=== PATIENT | female | born 1950 | race Caucasian/White ===

== ENCOUNTER → 2017-03-05 | Outpatient (CLI) | payer OTHER, MEDICAID ==
[~2017-03-05] MED LIST: ACLI400A2 INH; ALBU0.63 NEB; ALBU18HF INH; AMLO10TA2 PO; AZIT250T89 PO; BUDE10.2 INH; BUDE10.22 INH; CEFD300C37 PO; CITA10SO PO; CITA40TA12 PO; ENAL1TAB4 PO; GABA300C10 PO; HYDR-3138 PO; IPRA4AER INH; LORA10TA62 PO; METH500T7 PO; NAPR500T PO; NAPR500T3 PO; OLME40TA PO; OLME5TAB4 PO; OMEP-110 PO; PRAM0.12 PO; PRAM3TAB PO; PRED20TA PO; RISE5TAB PO; SIME80TA16 PO; TIZA4TAB PO; TRAZ100T15 PO; TRAZ150T68 PO; TRIA1CAP3 PO
== END | disposition home or self-care (01) ==
LOC: CFH 10:52
PROVIDERS: ATTEND Internal Medicine
DX: R05 Cough (principal)
CPT/HCPCS: 71020

== ENCOUNTER 2017-05-09 08:20 | Emergency (ER) | payer OTHER, MEDICAID ==
[~2017-05-09] VITALS: Ht 165.1 cm; Wt 81.1 kg
[2017-05-09 09:17] LABS: HEMOGLOBIN 14.3 g/dL (11.7-16.4); WHITE BLOOD COUNT 5.3 x10^3/uL (3.4-10)
[2017-05-09 09:26] LABS: ASPARTATE AMINO TRANSFERASE 13 U/L (15-37); BLOOD UREA NITROGEN 22 mg/dL (7-18)
[2017-05-09 09:31] LABS: IS PT STATUS REG ER OR PRE ER? YES
[2017-05-09 09:55] VITALS: BP 178/64
== END 2017-05-09 09:58 | disposition home or self-care (01) ==
LOC: ED 09:04
DX: J44.1 Chronic obstructive pulmonary disease with (acute) exacerbation (principal); K21.9 Gastro-esophageal reflux disease without esophagitis; M81.0 Age-related osteoporosis without current pathological fracture; I10 Essential (primary) hypertension; F41.9 Anxiety disorder, unspecified; Z59.0 Homelessness; Z87.891 Personal history of nicotine dependence; Z99.81 Dependence on supplemental oxygen
CPT/HCPCS: 36415; 71010; 80053; 83880; 84484; 85025; 93005; 99285; J7512

== ENCOUNTER 2017-06-30 14:24 | Emergency (ER) | payer OTHER, MEDICAID ==
[~2017-06-30] VITALS: Ht 170.2 cm; Wt 73.0 kg
[~2017-06-30 14:24] MED LIST changes: -HYDR-3138 PO; +HYDR-3237 PO; -OLME40TA PO; +OLME40TA12 PO; +TRAZ150T62 PO; -TRAZ150T68 PO
[2017-06-30 14:27] VITALS: BP 158/82
[2017-06-30 14:55] LABS: WHITE BLOOD COUNT 10.5 x10^3/uL (3.4-10)
[2017-06-30 14:56] LABS: HEMATOCRIT 42.4 % (34.6-47.8); HEMOGLOBIN 14.3 g/dL (11.7-16.4)
[2017-06-30 15:09] LABS: BLOOD UREA NITROGEN 20 mg/dL (7-18)
[2017-06-30 15:13] LABS: IS PT STATUS REG ER OR PRE ER? YES
[2017-06-30] MEDS ORDERED: ACETAMINOPHEN 325 MG TABLET ONE (16:19)
[2017-06-30] MEDS ORDERED: ACETAMINOPHEN 325 MG TABLET PO ONE (16:30)
== END 2017-06-30 16:25 | disposition home or self-care (01) ==
LOC: ED 15:03
DX: J20.9 Acute bronchitis, unspecified (principal); B96.89 Other specified bacterial agents as the cause of diseases classified elsewhere; J44.9 Chronic obstructive pulmonary disease, unspecified
CPT/HCPCS: 36415; 71010; 80048; 82040; 84484; 85025; 93005; 99285

== ENCOUNTER 2018-06-02 06:33 | Day surgery (SDC) | payer OTHER, MEDICAID ==
[~2018-06-02] VITALS: Ht 165.1 cm; Wt 78.5 kg
[~2018-06-02 06:33] MED LIST changes: -AMLO10TA2 PO; +AMLO10TA6 PO; +NAPR-685 PO; +NAPR-856 PO; -NAPR500T PO; -NAPR500T3 PO; +TRAZ-137 PO; -TRAZ100T15 PO
[2018-06-02] MEDS ORDERED: LACTATED RINGERS 1,000 ML IV SCH (07:32)
[2018-06-02] MEDS ORDERED: FLUT1BLS3 INH (07:37)
[2018-06-02 07:46] VITALS: BP 148/76
[2018-06-02] MEDS ORDERED: ALBUTEROL SULFATE 2.5 MG/3 ML ONE (07:55)
[2018-06-02] MEDS ORDERED: ALBUTEROL/IPRATROPIUM 2.5MG/0.5MG, 3 ML NEB ONE (08:00)
[2018-06-02] MEDS ORDERED: LIDOCAINE-MPF 1%, 2ML INFIL ONE (08:00)
[2018-06-02 08:13] LABS: ALANINE AMINOTRANSFERASE 32 U/L (12-78); ALBUMIN 4.1 g/dL (3.4-5.0); ANION GAP 8 mmol/L (5-15); CALCIUM 8.9 mg/dL (8.5-10.1); CHLORIDE 105 mmol/L (98-107); CREATININE 0.95 mg/dL (0.55-1.02)
[2018-06-02 08:15] LABS: ALKALINE PHOSPHATASE 71 U/L (45-117); BILIRUBIN,TOTAL 1.4 mg/dL (0.2-1.0); TOTAL PROTEIN 7.5 g/dL (6.4-8.2)
[2018-06-02] MEDS ORDERED: PROPOFOL 10 MG/ML, 20ML ONE (08:15)
[2018-06-02] MEDS ORDERED: DEXTROSE 50%, 50ML SYRINGE ONE (08:20)
[2018-06-02] MEDS ORDERED: ALBUTEROL SULFATE 2.5 MG/3 ML NPPB ONE (08:30)
[2018-06-02] MEDS ORDERED: ALBUTEROL/IPRATROPIUM 2.5MG/0.5MG, 3 ML NPPB PRN (09:00)
[2018-06-02] MEDS ORDERED: MIDAZOLAM 1 MG/ML, 2ML IV PRN (09:00)
[2018-06-02] MEDS ORDERED: PROMETHAZINE 12.5 MG SUPP PR PRN (09:00)
[2018-06-02] MEDS ORDERED: FENTANYL PF 100 MCG/2ML IV PRN (09:00)
[2018-06-02] MEDS ORDERED: EPHEDRINE 50 MG/ML, 1ML IVPush PRN (09:00)
[2018-06-02] MEDS ORDERED: ONDANSETRON ODT 8 MG PO PRN (09:00)
[2018-06-02] MEDS ORDERED: EPHEDRINE 50 MG/ML, 1ML IM PRN (09:00)
[2018-06-02] MEDS ORDERED: PROMETHAZINE 25 MG/ML, 1ML IV PRN (09:00)
[2018-06-02] MEDS ORDERED: PROMETHAZINE 25 MG SUPP PR PRN (09:00)
[2018-06-02] MEDS ORDERED: METOPROLOL 1 MG/ML, 5ML IV PRN (09:00)
[2018-06-02] MEDS ORDERED: DIPHENHYDRAMINE 50 MG/ML, 1ML IVPush PRN (09:00)
[2018-06-02] MEDS ORDERED: ACETAMINOPHEN 325 MG TABLET PO PRN (09:00)
[2018-06-02] MEDS ORDERED: hydrALAzine 20 MG/ML, 1ML IV PRN (09:00)
== END 2018-06-02 14:15 | disposition home or self-care (01) ==
LOC: OUT 06:33
PROVIDERS: ATTEND Internal Medicine Gastroenterology
DX: K57.30 Diverticulosis of large intestine without perforation or abscess without bleeding (principal); I10 Essential (primary) hypertension; J44.9 Chronic obstructive pulmonary disease, unspecified; Z99.81 Dependence on supplemental oxygen; Z88.8 Allergy status to other drugs, medicaments and biological substances; Z98.890 Other specified postprocedural states
CPT/HCPCS: 36415; 45378; 80053; 82962; 93005; 94640; J2704; J7613

== ENCOUNTER 2018-07-03 21:26 | Emergency (ER) | payer OTHER, MEDICAID ==
[~2018-07-03] VITALS: Ht 165.1 cm; Wt 75.9 kg
[~2018-07-03 21:26] MED LIST changes: +FLUT1BLS3 INH
[2018-07-03 22:13] LABS: BASOPHILS # (AUTO) 0.05 x10^3/uL (0-0.1); BASOPHILS % (AUTO) 1 % (0-1); EOSINOPHILS # (AUTO) 0.19 x10^3/uL (0-0.4); EOSINOPHILS % (AUTO) 3 % (1-7); LYMPHOCYTES # (AUTO) 1.33 x10^3/uL (1-3.4); LYMPHOCYTES % (AUTO) 21 % (22-44); MD NO; MEAN CORPUSCULAR HEMOGLOBIN 30.5 pg (27.0-34.8); MEAN CORPUSCULAR HGB CONC 32.9 g/dL (32.4-35.8); MEAN CORPUSCULAR VOLUME 92.8 fL (80-100); MEAN PLATELET VOLUME 7.2 fL (7.4-10.4); MONOCYTES # (AUTO) 0.47 x10^3/uL (0.2-0.8); MONOCYTES % (AUTO) 7 % (2-9); NEUTROPHILS # (AUTO) 4.29 x10^3/uL (1.8-6.8); NEUTROPHILS % (AUTO) 68 % (42-75); PLATELET COUNT 282 x10^3/uL (130-400); RED CELL DISTRIBUTION WIDTH 13.8 % (9.6-15.2)
[2018-07-03] MEDS ORDERED: OMNIPAQUE 350 MG/ML, 100ML BOTTLE ONE (22:30)
[2018-07-03 22:48] LABS: ALBUMIN 3.4 g/dL (3.4-5.0); ANION GAP 4 mmol/L (5-15); CALCIUM 8.5 mg/dL (8.5-10.1); CHLORIDE 105 mmol/L (98-107); CREATININE 0.93 mg/dL (0.55-1.02)
[2018-07-03 23:06] LABS: ALANINE AMINOTRANSFERASE 21 U/L (12-78); ALKALINE PHOSPHATASE 49 U/L (45-117); BILIRUBIN,TOTAL 0.3 mg/dL (0.2-1.0); TOTAL PROTEIN 6.5 g/dL (6.4-8.2); TROPONIN I < 0.015 ng/mL (0.000-0.045)
[2018-07-03 23:16] VITALS: BP 142/74
[2018-07-03 23:24] LABS: CULTURE INDICATED? YES; MICROSCOPIC INDICATED
== END 2018-07-04 00:24 | disposition home or self-care (01) ==
LOC: ED 23:59
DX: R10.12 Left upper quadrant pain (principal); R10.32 Left lower quadrant pain; E11.9 Type 2 diabetes mellitus without complications; K21.9 Gastro-esophageal reflux disease without esophagitis; M54.9 Dorsalgia, unspecified; G89.29 Other chronic pain; J44.9 Chronic obstructive pulmonary disease, unspecified; I10 Essential (primary) hypertension; F32.9 Major depressive disorder, single episode, unspecified; F41.1 Generalized anxiety disorder; Z86.718 Personal history of other venous thrombosis and embolism; Z87.891 Personal history of nicotine dependence
CPT/HCPCS: 36415; 74022; 74177; 80053; 81001; 84484; 85025; 87086; 93005; 99285; Q9967

== ENCOUNTER 2018-08-16 16:31 | Emergency (ER) | payer OTHER, MEDICAID ==
[2018-08-16 17:11] LABS: BASOPHILS # (AUTO) 0.02 x10^3/uL (0-0.1); BASOPHILS % (AUTO) 0 % (0-1); EOSINOPHILS # (AUTO) 0.26 x10^3/uL (0-0.4); EOSINOPHILS % (AUTO) 4 % (1-7); LYMPHOCYTES # (AUTO) 1.69 x10^3/uL (1-3.4); LYMPHOCYTES % (AUTO) 29 % (22-44); MD NO; MEAN CORPUSCULAR HEMOGLOBIN 31.2 pg (27.0-34.8); MEAN CORPUSCULAR HGB CONC 33.8 g/dL (32.4-35.8); MEAN CORPUSCULAR VOLUME 92.3 fL (80-100); MEAN PLATELET VOLUME 7.3 fL (7.4-10.4); MONOCYTES # (AUTO) 0.57 x10^3/uL (0.2-0.8); MONOCYTES % (AUTO) 10 % (2-9); NEUTROPHILS % (AUTO) 57 % (42-75); PLATELET COUNT 265 x10^3/uL (130-400); RED BLOOD COUNT 4.93 x10^6/uL (3.82-5.3); RED CELL DISTRIBUTION WIDTH 12.9 % (9.6-15.2)
[2018-08-16 17:22] LABS: ALANINE AMINOTRANSFERASE 37 U/L (12-78); ALBUMIN 3.6 g/dL (3.4-5.0); ANION GAP 6 mmol/L (5-15); CALCIUM 8.8 mg/dL (8.5-10.1); CHLORIDE 106 mmol/L (98-107); CREATININE 0.92 mg/dL (0.55-1.02)
[2018-08-16 17:25] LABS: ALKALINE PHOSPHATASE 52 U/L (45-117); BILIRUBIN,TOTAL 0.3 mg/dL (0.2-1.0); TOTAL PROTEIN 6.9 g/dL (6.4-8.2)
[2018-08-16 19:21] VITALS: BP 128/67
== END 2018-08-16 19:35 | disposition home or self-care (01) ==
LOC: ED 19:29
DX: J43.9 Emphysema, unspecified (principal); K42.9 Umbilical hernia without obstruction or gangrene; E11.9 Type 2 diabetes mellitus without complications; K21.9 Gastro-esophageal reflux disease without esophagitis; F32.9 Major depressive disorder, single episode, unspecified; I10 Essential (primary) hypertension; Z86.718 Personal history of other venous thrombosis and embolism
CPT/HCPCS: 36415; 74022; 76705; 80053; 83880; 85025; 93005; 99284

== ENCOUNTER → 2018-10-20 | Outpatient (CLI) | payer OTHER, MEDICAID ==
[~2018-10-20] MED LIST changes: +ALBU1.25 NEB; -AMLO10TA6 PO; +AMLO10TA8 PO; +METH750T2 PO; +OLME20TA17 PO; +OXYB5TAB7 PO; +PRAM0.125 PO; +TRAZ50TA66 PO; +[UNRECOGNIZED DRUG - CODE] PO; +biotin PO
== END | disposition home or self-care (01) ==
LOC: STAR 14:30
PROVIDERS: ATTEND Surgery
DX: Z01.818 Encounter for other preprocedural examination (principal); K42.9 Umbilical hernia without obstruction or gangrene
CPT/HCPCS: 93005

== ENCOUNTER 2018-12-15 16:43 | Emergency (ER) | payer OTHER, MEDICAID ==
[~2018-12-15] VITALS: Ht 165.1 cm; Wt 76.2 kg
[2018-12-15 17:34] LABS: BASOPHILS # (AUTO) 0.02 x10^3/uL (0-0.1); BASOPHILS % (AUTO) 0 % (0-1); EOSINOPHILS # (AUTO) 0.07 x10^3/uL (0-0.4); EOSINOPHILS % (AUTO) 1 % (1-7); LYMPHOCYTES # (AUTO) 1.54 x10^3/uL (1-3.4); LYMPHOCYTES % (AUTO) 16 % (22-44); MD NO; MEAN CORPUSCULAR HEMOGLOBIN 31.7 pg (27.0-34.8); MEAN CORPUSCULAR HGB CONC 34.2 g/dL (32.4-35.8); MEAN CORPUSCULAR VOLUME 92.9 fL (80-100); MEAN PLATELET VOLUME 6.9 fL (7.4-10.4); MONOCYTES # (AUTO) 0.88 x10^3/uL (0.2-0.8); MONOCYTES % (AUTO) 9 % (2-9); NEUTROPHILS # (AUTO) 7.01 x10^3/uL (1.8-6.8); NEUTROPHILS % (AUTO) 74 % (42-75); PLATELET COUNT 288 x10^3/uL (130-400); RED CELL DISTRIBUTION WIDTH 12.6 % (9.6-15.2)
[2018-12-15 17:45] LABS: ALANINE AMINOTRANSFERASE 22 U/L (12-78); ALBUMIN 3.7 g/dL (3.4-5.0); ANION GAP 5 mmol/L (5-15); CALCIUM 8.9 mg/dL (8.5-10.1); CHLORIDE 106 mmol/L (98-107); CREATININE 0.94 mg/dL (0.55-1.02)
[2018-12-15 17:47] LABS: ALKALINE PHOSPHATASE 68 U/L (45-117); BILIRUBIN,TOTAL 0.3 mg/dL (0.2-1.0); TOTAL PROTEIN 7.6 g/dL (6.4-8.2)
[2018-12-15] MEDS ORDERED: blood pressure med (18:01)
--- NOTE | 2018-12-15 18:02 | NUR ---
Patient reports she hasn't taken her medications for over one week.
--- NOTE | 2018-12-15 18:10 | NUR ---
Patient updated on POC
[2018-12-15] MEDS ORDERED: KETOROLAC 30 MG/1 ML ONE (18:14)
[2018-12-15] MEDS ORDERED: HYDROcodone/APAP 5/325 TABLET ONE (18:15)
[2018-12-15] MEDS ORDERED: HYDROcodone/APAP 5/325 TABLET PO ONE (18:30)
[2018-12-15] MEDS ORDERED: KETOROLAC 30 MG/1 ML IM ONE (18:30)
[2018-12-15 19:15] VITALS: BP 159/68
== END 2018-12-15 19:16 | disposition home or self-care (01) ==
LOC: ED 19:10
DX: M54.6 Pain in thoracic spine (principal); E11.9 Type 2 diabetes mellitus without complications; K21.9 Gastro-esophageal reflux disease without esophagitis; J43.9 Emphysema, unspecified; F32.9 Major depressive disorder, single episode, unspecified; F41.1 Generalized anxiety disorder
CPT/HCPCS: 36415; 71045; 72072; 80053; 85025; 93005; 96372; 99284; J1885

== ENCOUNTER 2018-12-23 20:13 | Emergency (ER) | payer OTHER, MEDICAID ==
[~2018-12-23] VITALS: Ht 170.2 cm; Wt 74.0 kg
[~2018-12-23 20:13] MED LIST changes: +blood pressure med
[2018-12-23 21:09] LABS: BASOPHILS # (AUTO) 0.07 x10^3/uL (0-0.1); BASOPHILS % (AUTO) 1 % (0-1); EOSINOPHILS # (AUTO) 0.14 x10^3/uL (0-0.4); EOSINOPHILS % (AUTO) 2 % (1-7); LYMPHOCYTES # (AUTO) 1.33 x10^3/uL (1-3.4); LYMPHOCYTES % (AUTO) 19 % (22-44); MD NO; MEAN CORPUSCULAR HEMOGLOBIN 31.6 pg (27.0-34.8); MEAN CORPUSCULAR HGB CONC 33.8 g/dL (32.4-35.8); MEAN CORPUSCULAR VOLUME 93.4 fL (80-100); MEAN PLATELET VOLUME 6.8 fL (7.4-10.4); MONOCYTES # (AUTO) 0.56 x10^3/uL (0.2-0.8); MONOCYTES % (AUTO) 8 % (2-9); NEUTROPHILS # (AUTO) 5.04 x10^3/uL (1.8-6.8); NEUTROPHILS % (AUTO) 71 % (42-75); PLATELET COUNT 367 x10^3/uL (130-400); RED BLOOD COUNT 4.02 x10^6/uL (3.82-5.3); RED CELL DISTRIBUTION WIDTH 13.1 % (9.6-15.2)
[2018-12-23 21:20] LABS: ALBUMIN 3.6 g/dL (3.4-5.0); ANION GAP 5 mmol/L (5-15); CALCIUM 9.1 mg/dL (8.5-10.1); CHLORIDE 107 mmol/L (98-107)
[2018-12-23 21:24] LABS: ALANINE AMINOTRANSFERASE 22 U/L (12-78); ALKALINE PHOSPHATASE 58 U/L (45-117); BILIRUBIN,TOTAL 0.5 mg/dL (0.2-1.0); CREATININE 0.91 mg/dL (0.55-1.02)
[2018-12-23 21:59] LABS: MICROSCOPIC AUTO
[2018-12-23 22:00] LABS: CULTURE INDICATED? YES
--- NOTE | 2018-12-23 22:00 | NUR ---
Pt ambualted to restroom with portable o2 with steady gait
[2018-12-23] MEDS ORDERED: OMNIPAQUE 350 MG/ML, 100ML BOTTLE ONE (22:21)
[2018-12-23 23:02] VITALS: BP 153/70
--- NOTE | 2018-12-23 23:02 | NUR ---
Pt continues to req IV fluids, pt in no obv acute distress, MD in for recheck, aware of pts request.
--- NOTE | 2018-12-23 23:16 | NUR ---
Pt agrees to discharge instructions, req tylenol prior to discharge. MD notified.
[2018-12-23] MEDS ORDERED: ACETAMINOPHEN 500 MG TABLET ONE (23:20)
--- NOTE | 2018-12-23 23:27 | NUR ---
Pt given taxi voucher for safe DC. Ambualted to triage with steady gait, states she does not need o2 to get home, pt given portable o2 to wait in lobby for cab
[2018-12-23] MEDS ORDERED: ACETAMINOPHEN 500 MG TABLET PO ONE (23:30)
== END 2018-12-23 23:30 | disposition home or self-care (01) ==
LOC: ED 23:26
DX: R10.12 Left upper quadrant pain (principal); J44.9 Chronic obstructive pulmonary disease, unspecified; I10 Essential (primary) hypertension; K21.9 Gastro-esophageal reflux disease without esophagitis; E11.40 Type 2 diabetes mellitus with diabetic neuropathy, unspecified; I95.9 Hypotension, unspecified
CPT/HCPCS: 36415; 74177; 80053; 81001; 83690; 85025; 87086; 99284; Q9967

== ENCOUNTER 2019-07-24 03:50 | Emergency (ER) | payer OTHER ==
[~2019-07-24 03:50] MED LIST changes: -ACLI400A2 INH; +ACLI400A3 INH; -TIZA4TAB PO; +TIZA4TAB2 PO
== END 2019-07-24 04:45 ==
LOC: ED 04:33
DX: R68.89 Other general symptoms and signs (principal); Z53.21 Procedure and treatment not carried out due to patient leaving prior to being seen by health care provider

== ENCOUNTER 2019-08-30 12:21 | Emergency (ER) | payer MEDICARE, OTHER ==
[~2019-08-30] VITALS: Ht 165.1 cm; Wt 75.2 kg
[~2019-08-30 12:21] MED LIST changes: +OXYB5TAB10 PO; -OXYB5TAB7 PO
[2019-08-30 15:09] VITALS: BP 160/72
--- NOTE | 2019-08-30 15:10 | NUR ---
pt given dc instructions, pt given incentive spirometer with education. dc vs reviewed with tara zavaleta. pt a&o, resps even and unlabored, nadn. pt amb to dc desk with steady gait wearing own portable oxygen at baseline dose of 2L/min. pt had no complaint at dc.
== END 2019-08-30 15:10 | disposition home or self-care (01) ==
LOC: ED 15:04
DX: S20.212A Contusion of left front wall of thorax, initial encounter (principal); M94.0 Chondrocostal junction syndrome [Tietze]; I10 Essential (primary) hypertension; E11.9 Type 2 diabetes mellitus without complications; K21.9 Gastro-esophageal reflux disease without esophagitis; J43.9 Emphysema, unspecified; G89.29 Other chronic pain; Z87.891 Personal history of nicotine dependence; Z86.39 Personal history of other endocrine, nutritional and metabolic disease; Z90.721 Acquired absence of ovaries, unilateral
CPT/HCPCS: 99283

== ENCOUNTER 2020-03-20 17:24 | Emergency (ER) | payer MEDICARE, OTHER ==
[~2020-03-20] VITALS: Ht 165.1 cm; Wt 65.9 kg
[~2020-03-20 17:24] MED LIST changes: -TRAZ-137 PO; +TRAZ-175 PO
[2020-03-20 19:59] LABS: BASOPHILS # (AUTO) 0.01 x10^3/uL (0-0.1); BASOPHILS % (AUTO) 0 % (0-1); EOSINOPHILS # (AUTO) 0.16 x10^3/uL (0-0.4); EOSINOPHILS % (AUTO) 2 % (1-7); LYMPHOCYTES % (AUTO) 12 % (22-44); MD NO; MEAN CORPUSCULAR HEMOGLOBIN 31.6 pg (27.0-34.8); MEAN CORPUSCULAR HGB CONC 33.4 g/dL (32.4-35.8); MEAN CORPUSCULAR VOLUME 94.7 fL (80-100); MEAN PLATELET VOLUME 7.4 fL (7.4-10.4); MONOCYTES # (AUTO) 0.53 x10^3/uL (0.2-0.8); MONOCYTES % (AUTO) 7 % (2-9); NEUTROPHILS # (AUTO) 6.33 x10^3/uL (1.8-6.8); NEUTROPHILS % (AUTO) 79 % (42-75); PLATELET COUNT 262 x10^3/uL (130-400); RED BLOOD COUNT 4.28 x10^6/uL (3.82-5.3); RED CELL DISTRIBUTION WIDTH 13.2 % (9.6-15.2)
[2020-03-20 20:12] LABS: ANION GAP 3 mmol/L (5-15); CALCIUM 8.8 mg/dL (8.5-10.1); CHLORIDE 109 mmol/L (98-107); CREATININE 0.93 mg/dL (0.55-1.02)
[2020-03-20 20:53] VITALS: BP 96/42
== END 2020-03-20 21:53 | disposition home or self-care (01) ==
LOC: ED 21:25
DX: L03.116 Cellulitis of left lower limb (principal); M79.672 Pain in left foot; R60.0 Localized edema; R94.31 Abnormal electrocardiogram [ECG] [EKG]; I10 Essential (primary) hypertension; K21.9 Gastro-esophageal reflux disease without esophagitis; J44.9 Chronic obstructive pulmonary disease, unspecified; E11.9 Type 2 diabetes mellitus without complications; Z86.718 Personal history of other venous thrombosis and embolism
CPT/HCPCS: 36415; 71045; 80048; 83880; 85025; 93005; 99285

== ENCOUNTER 2020-03-29 00:22 | Emergency (ER) | payer MEDICARE ==
[~2020-03-29] VITALS: Ht 165.1 cm; Wt 68.7 kg
[2020-03-29 00:24] VITALS: BP 142/59
--- NOTE | 2020-03-29 00:46 | NUR ---
BREAK RN: PT. AMBULATORY TO ROOM FROM LOBBY AT THIS TIME.
--- NOTE | 2020-03-29 01:00 | NUR ---
BREAK RN: TRACY JETER IN TO EVAL PT. AND DISCUSS POC WITH PT. CONTINUOUS PULSE OX IN PLACE.
[2020-03-29] MEDS ORDERED: CEPHALEXIN 500 MG CAPSULE PO ONE (01:30)
[2020-03-29] MEDS ORDERED: CEPHALEXIN 500 MG CAPSULE ONE (01:32)
== END 2020-03-29 01:38 | disposition home or self-care (01) ==
LOC: ED 00:48
DX: L03.116 Cellulitis of left lower limb (principal); Z76.0 Encounter for issue of repeat prescription; I10 Essential (primary) hypertension; J44.9 Chronic obstructive pulmonary disease, unspecified; G89.29 Other chronic pain; K21.9 Gastro-esophageal reflux disease without esophagitis; Z86.718 Personal history of other venous thrombosis and embolism
CPT/HCPCS: 99281

== ENCOUNTER 2020-05-22 14:59 | Emergency (ER) | payer MEDICARE ==
[~2020-05-22] VITALS: Ht 167.6 cm; Wt 67.8 kg
[2020-05-22 15:05] VITALS: BP 129/68
--- NOTE | 2020-05-22 15:10 | NUR ---
"I WAS HERE 4 WEEKS AGO FOR A CUT ON MY FOOT FROM A PIECE OF GLASS. BUT TODAY THERE IS PAIN IN MY LEFT FOOT WHERE THE CUT WAS. THE TOP OF MY FOOT ALSO HURTS WHERE I DROPPED A CINDER BLOCK ON IT 2 YEARS AGO." NO REDNESS OR SWELLING NOTED
--- NOTE | 2020-05-22 15:30 | NUR ---
RADIOLOGY AT BEDSIDE
== END 2020-05-22 16:31 | disposition home or self-care (01) ==
LOC: ED 16:15
DX: M79.672 Pain in left foot (principal); J43.9 Emphysema, unspecified; E11.9 Type 2 diabetes mellitus without complications; G89.29 Other chronic pain; I10 Essential (primary) hypertension; Z86.718 Personal history of other venous thrombosis and embolism
CPT/HCPCS: 99283

== ENCOUNTER 2020-07-26 12:39 | Emergency (ER) | payer MEDICARE ==
[~2020-07-26] VITALS: Ht 165.1 cm; Wt 72.0 kg
[2020-07-26 12:43] VITALS: BP 137/64
[2020-07-26 13:50] LABS: BASOPHILS % (AUTO) 0 % (0-1); EOSINOPHILS % (AUTO) 1 % (1-7); LYMPHOCYTES % (AUTO) 8 % (22-44); MEAN CORPUSCULAR HEMOGLOBIN 30.6 pg (27.0-34.8); MEAN CORPUSCULAR HGB CONC 33.1 g/dL (32.4-35.8); MEAN PLATELET VOLUME 7.1 fL (7.4-10.4); MONOCYTES % (AUTO) 6 % (2-9); NEUTROPHILS % (AUTO) 85 % (42-75); PLATELET COUNT 280 x10^3/uL (130-400); RED BLOOD COUNT 4.66 x10^6/uL (3.82-5.3); RED CELL DISTRIBUTION WIDTH 13.5 % (9.6-15.2)
[2020-07-26 13:58] LABS: ALANINE AMINOTRANSFERASE 22 U/L (12-78); ALBUMIN 3.3 g/dL (3.4-5.0); ANION GAP 6 mmol/L (5-15); CALCIUM 8.9 mg/dL (8.5-10.1); CHLORIDE 109 mmol/L (98-107); CREATININE 0.91 mg/dL (0.55-1.02)
[2020-07-26 14:00] LABS: ALKALINE PHOSPHATASE 68 U/L (45-117); BILIRUBIN,TOTAL 0.7 mg/dL (0.2-1.0); TOTAL PROTEIN 6.8 g/dL (6.4-8.2)
--- NOTE | 2020-07-26 14:01 | NUR ---
REPORT FROM PINA CERVANTES. PT CARE RESPONSIBLITIES ASSUMED.
[2020-07-26 14:32] LABS: MD SCAN
--- NOTE | 2020-07-26 14:53 | NUR ---
PT WALKING IN HALLWAY, FULLY DRESSED WITH HER COAT ON STATING THAT SHE IS COLD. WHEN INFORMED OF NEED FOR URINE SAMPLE, STATES "I JUST WENT, I CAN'T GO AGAIN YET." PT ASSISTED BACK TO BED, PROVIDED WITH MORE WARM BLANKETS.
== END 2020-07-26 15:09 | disposition home or self-care (01) ==
LOC: ED 13:10
DX: B34.9 Viral infection, unspecified (principal); R50.9 Fever, unspecified; J02.9 Acute pharyngitis, unspecified; R09.81 Nasal congestion; M79.10 Myalgia, unspecified site; I10 Essential (primary) hypertension; E11.9 Type 2 diabetes mellitus without complications; K21.9 Gastro-esophageal reflux disease without esophagitis; G89.29 Other chronic pain; J43.9 Emphysema, unspecified; Z87.891 Personal history of nicotine dependence; Z86.718 Personal history of other venous thrombosis and embolism
CPT/HCPCS: 36415; 71045; 80053; 83605; 84145; 85025; 87040; 99284

== ENCOUNTER 2020-12-02 12:19 | Inpatient (IN) | payer MEDICARE ==
[~2020-12-02] VITALS: Ht 162.6 cm; Wt 75.3 kg
[~2020-12-02 12:19] MED LIST changes: +AMLO-211 PO; -AMLO10TA8 PO; +LORA-59 PO; -LORA10TA62 PO; +METH-639 PO; +METH-640 PO; -METH500T7 PO; -METH750T2 PO; +PRED50TA PO
--- NOTE | 2020-12-02 12:34 | NUR ---
PT BIB [facility]. PT CO HEADACHE AND BODY ACHES X2 DAYS. PT STATES THAT SHE TOOK GABAPENTIN FOR PAIN. 600MG IBUPROFEN AND 1G TYLENOL GIVEN BY [facility]. PT DENIES ANY BLURRY VISION OR WEAKNESS. PT STATED THAT SHE ALWAYS HAS BODY ACHES, BUT HAS GOTTEN WORSE THE PAST 2 DAYS. PT IS POOR HISTORIAN AND CANT REMEMBER WHY SHE WAS PRESCRIBED GABAPENTIN.
--- NOTE | 2020-12-02 13:18 | NUR ---
pt sleeping in gurney. resps even and unlabored. awaiting assessment at this time.
[2020-12-02 14:12] LABS: BASOPHILS % (AUTO) 0 % (0-1); EOSINOPHILS % (AUTO) 1 % (1-7); LYMPHOCYTES % (AUTO) 7 % (22-44); MEAN CORPUSCULAR HEMOGLOBIN 30.8 pg (27.0-34.8); MEAN CORPUSCULAR HGB CONC 33.9 g/dL (32.4-35.8); MEAN PLATELET VOLUME 6.9 fL (7.4-10.4); MONOCYTES % (AUTO) 7 % (2-9); NEUTROPHILS % (AUTO) 85 % (42-75); PLATELET COUNT 288 x10^3/uL (130-400); RED BLOOD COUNT 4.69 x10^6/uL (3.82-5.3); RED CELL DISTRIBUTION WIDTH 13.5 % (9.6-15.2)
[2020-12-02 14:15] LABS: MD NO
[2020-12-02 14:19] LABS: ALANINE AMINOTRANSFERASE 19 U/L (12-78); ALBUMIN 3.1 g/dL (3.4-5.0); ANION GAP 6 mmol/L (5-15); CALCIUM 8.6 mg/dL (8.5-10.1); CHLORIDE 107 mmol/L (98-107); CREATININE 0.68 mg/dL (0.55-1.02)
[2020-12-02 14:21] LABS: ALKALINE PHOSPHATASE 70 U/L (45-117); BILIRUBIN,TOTAL 0.7 mg/dL (0.2-1.0); TOTAL PROTEIN 6.5 g/dL (6.4-8.2)
--- NOTE | 2020-12-02 14:33 | NUR ---
pt resting in gurney. resps even and unlabored. pt denies any needs or concerns at this time.
[2020-12-02] MEDS ORDERED: CEFTRIAXONE PMX 1GM/50ML 50 ML ONE (14:53)
--- NOTE | 2020-12-02 14:59 | NUR ---
piv est on l forearm. bc sent to lab.
[2020-12-02] MEDS ORDERED: CEFTRIAXONE PMX 1GM/50ML 50 ML IVPB ONE (15:00)
[2020-12-02] MEDS ORDERED: AZITHROMYCIN 500 MG in SODIUM CHLORIDE 0.9% 250 ML IV ONE (15:00)
--- NOTE | 2020-12-02 15:39 | NUR ---
2ND ABX INFUSING AT THIS TIME
--- NOTE | 2020-12-02 16:23 | NUR ---
this rn called hospitalist to verify abx dose. no answer at this time. awaiting phone call from hospitalist at this time.
[2020-12-02] MEDS: CEFTRIAXONE PMX 2GM/50ML 50 ML IVPB SCH (16:30)
--- NOTE | 2020-12-02 16:59 | NUR ---
report given to leilani perez. all questions answered.
[2020-12-02 17:48] VITALS: BP 129/71
[2020-12-02 19:57] VITALS: BP 140/70
[2020-12-02] MEDS: TRAZODONE 50MG TABLET PO SCH (20:33)
[2020-12-02] MEDS: DOXYCYCLINE 100MG CAP PO SCH (20:34)
[2020-12-02] MEDS: GABAPENTIN 300 MG CAPSULE PO SCH (20:34)
[2020-12-03 02:38] VITALS: BP 135/63
[2020-12-03 06:31] VITALS: BP 150/77
[2020-12-03] MEDS: OXYBUTYNIN CHLORIDE 5 MG TABLET PO SCH (08:57)
[2020-12-03] MEDS: LOSARTAN 50MG TABLET PO SCH (08:57)
[2020-12-03] MEDS: DOXYCYCLINE 100MG CAP PO SCH ×2 (08:57→21:05)
[2020-12-03] MEDS: GABAPENTIN 300 MG CAPSULE PO SCH ×3 (08:57→21:00)
[2020-12-03] MEDS ORDERED: ENOXAPARIN 60 MG/0.6 ML SQ SCH (09:30)
[2020-12-03] MEDS ORDERED: IBUPROFEN 600 MG TABLET PO PRN (09:30)
[2020-12-03] MEDS ORDERED: ACETAMINOPHEN 325 MG TABLET PO PRN (09:30)
[2020-12-03 12:30] VITALS: BP 161/76
[2020-12-03] MEDS ORDERED: FLUTICASONE/VILANTEROL 100-25MCG/INH INH SCH (13:00)
[2020-12-03] MEDS ORDERED: ALBUTEROL HFA 90 MCG/SPRAY INH PRN (13:00)
[2020-12-03] MEDS ORDERED: ENALAPRILAT 1.25 MG/ML, 2ML IVPush PRN (13:00)
[2020-12-03] MEDS ORDERED: LABETALOL 5MG/ML, 20ML IVPush PRN (13:00)
[2020-12-03] MEDS: ENOXAPARIN 30 MG/0.3 ML SQ SCH (15:24)
[2020-12-03] MEDS: CEFTRIAXONE PMX 2GM/50ML 50 ML IVPB SCH (15:41)
[2020-12-03] MEDS ORDERED: DOCUSATE 100 MG CAPSULE PO PRN (18:00)
[2020-12-03] MEDS ORDERED: DOCUSATE 50 MG/5 ML, 10ML UDC PO PRN (18:00)
[2020-12-03 18:21] VITALS: BP 136/72
[2020-12-03] MEDS: TRAZODONE 50MG TABLET PO SCH (21:05)
[2020-12-04 00:24] VITALS: BP 150/78
[2020-12-04] MEDS: ENOXAPARIN 30 MG/0.3 ML SQ SCH (03:23)
[2020-12-04 05:22] LABS: BASOPHILS % (AUTO) 0 % (0-1); EOSINOPHILS % (AUTO) 2 % (1-7); LYMPHOCYTES % (AUTO) 10 % (22-44); MONOCYTES % (AUTO) 8 % (2-9); NEUTROPHILS % (AUTO) 79 % (42-75); PLATELET COUNT 309 x10^3/uL (130-400); RED BLOOD COUNT 4.66 x10^6/uL (3.82-5.3); RED CELL DISTRIBUTION WIDTH 14.1 % (9.6-15.2)
[2020-12-04 05:24] LABS: MD NO
[2020-12-04 05:32] LABS: ANION GAP 3 mmol/L (5-15); CALCIUM 8.8 mg/dL (8.5-10.1); CHLORIDE 110 mmol/L (98-107); CREATININE 0.74 mg/dL (0.55-1.02)
[2020-12-04 08:22] VITALS: BP 141/62
[2020-12-04] MEDS ORDERED: PRAMIPEXOLE 0.125MG TABLET PO SCH (09:00)
[2020-12-04] MEDS ORDERED: FLUTICASONE/VILANTEROL 100-25MCG/INH INH SCH (09:00)
[2020-12-04] MEDS: DOXYCYCLINE 100MG CAP PO SCH (09:58)
[2020-12-04] MEDS: GABAPENTIN 300 MG CAPSULE PO SCH (09:59)
[2020-12-04] MEDS: OXYBUTYNIN CHLORIDE 5 MG TABLET PO SCH (09:59)
[2020-12-04] MEDS: LOSARTAN 50MG TABLET PO SCH (09:59)
[2020-12-04] MEDS ORDERED: CEFDINIR 300 MG CAPSULE PO SCH (12:00)
[2020-12-04] MEDS ORDERED: DOXY100C2 PO (12:08)
[2020-12-04] MEDS ORDERED: PRAM0.125 PO (12:08)
[2020-12-04] MEDS ORDERED: LOSA50TA2 PO (12:08)
[2020-12-04] MEDS ORDERED: OXYB5TAB10 PO (12:08)
[2020-12-04] MEDS ORDERED: TRAZ50TA66 PO (12:08)
[2020-12-04] MEDS ORDERED: GABA300C PO (12:08)
[2020-12-04] MEDS ORDERED: CEFD300C37 PO (12:08)
[2020-12-04 13:20] VITALS: BP 139/76
== END 2020-12-04 16:14 | disposition home health service (06) | DRG 194 ==
LOC: ED 15:13 → EDIP 16:37 → 3N 17:23
PROVIDERS: ADMIT Family Medicine; ATTEND Family Medicine
DX: J18.9 Pneumonia, unspecified organism (principal); E46 Unspecified protein-calorie malnutrition; E11.9 Type 2 diabetes mellitus without complications; F41.1 Generalized anxiety disorder; I10 Essential (primary) hypertension; J43.9 Emphysema, unspecified; M81.0 Age-related osteoporosis without current pathological fracture; I35.2 Nonrheumatic aortic (valve) stenosis with insufficiency; Z20.822 Contact with and (suspected) exposure to COVID-19; I27.20 Pulmonary hypertension, unspecified; Z82.0 Family history of epilepsy and other diseases of the nervous system; Z86.711 Personal history of pulmonary embolism; Z87.891 Personal history of nicotine dependence; Z99.81 Dependence on supplemental oxygen; Z68.28 Body mass index [BMI] 28.0-28.9, adult
CPT/HCPCS: 36415; 71045; 80048; 80053; 83605; 83615; 85025; 87040; 93306; 99285; G0378; J0456; J0696; J1650; J7050; U0003

== ENCOUNTER 2020-12-10 21:35 | Emergency (ER) | payer MEDICARE ==
[~2020-12-10] VITALS: Ht 162.6 cm; Wt 75.0 kg
[~2020-12-10 21:35] MED LIST changes: +DOXY100C2 PO; +GABA300C PO; +LOSA50TA2 PO
--- NOTE | 2020-12-10 21:46 | NUR ---
bib ems from home. pt recently discharged from this ed for pnemonia. pt unable to fill perscriptions and states aching pain all arouynd her. denies cp or sob. on 02 from home and given 4mg po zofran enroute. ekg completed. pt on monitors. awaiting erp eval
[2020-12-10 22:33] VITALS: BP 144/64
--- NOTE | 2020-12-10 22:35 | NUR ---
PT RESTING IN [facility], DENIES NEEDS AT THIS TIME
[2020-12-10 22:36] LABS: BASOPHILS % (AUTO) 1 % (0-1); EOSINOPHILS % (AUTO) 3 % (1-7); LYMPHOCYTES % (AUTO) 28 % (22-44); MD NO; MEAN CORPUSCULAR HEMOGLOBIN 30.7 pg (27.0-34.8); MEAN CORPUSCULAR HGB CONC 33.7 g/dL (32.4-35.8); MEAN PLATELET VOLUME 7.3 fL (7.4-10.4); MONOCYTES % (AUTO) 11 % (2-9); NEUTROPHILS % (AUTO) 57 % (42-75); PLATELET COUNT 364 x10^3/uL (130-400); RED BLOOD COUNT 4.18 x10^6/uL (3.82-5.3); RED CELL DISTRIBUTION WIDTH 13.5 % (9.6-15.2)
[2020-12-10 22:40] LABS: ALBUMIN 2.7 g/dL (3.4-5.0); ANION GAP 4 mmol/L (5-15); CALCIUM 8.6 mg/dL (8.5-10.1); CHLORIDE 107 mmol/L (98-107)
[2020-12-10 22:44] LABS: TROPONIN I < 0.015 ng/mL (0.000-0.045)
== END 2020-12-10 23:13 | disposition home or self-care (01) ==
LOC: ED 23:04
DX: J44.9 Chronic obstructive pulmonary disease, unspecified (principal); M79.10 Myalgia, unspecified site; R07.9 Chest pain, unspecified; R94.31 Abnormal electrocardiogram [ECG] [EKG]; E11.9 Type 2 diabetes mellitus without complications; I10 Essential (primary) hypertension; K21.9 Gastro-esophageal reflux disease without esophagitis; Z86.73 Personal history of transient ischemic attack (TIA), and cerebral infarction without residual deficits; Z90.710 Acquired absence of both cervix and uterus
CPT/HCPCS: 36415; 71045; 80048; 82040; 84484; 85025; 93005; 99285

== ENCOUNTER 2021-01-18 19:46 | Emergency (ER) | payer MEDICARE, MEDICAID ==
[~2021-01-18] VITALS: Ht 165.1 cm; Wt 68.2 kg
[2021-01-18 19:48] VITALS: BP 159/59
== END 2021-01-18 20:32 | disposition home or self-care (01) ==
LOC: ED 20:15
DX: J44.9 Chronic obstructive pulmonary disease, unspecified (principal); I10 Essential (primary) hypertension; E11.9 Type 2 diabetes mellitus without complications; K21.9 Gastro-esophageal reflux disease without esophagitis; Z86.718 Personal history of other venous thrombosis and embolism; Z87.891 Personal history of nicotine dependence
CPT/HCPCS: 93005; 99283

== ENCOUNTER 2021-06-09 20:03 | Emergency (ER) | payer MEDICARE, MEDICAID ==
[~2021-06-09] VITALS: Ht 165.1 cm; Wt 79.8 kg
[~2021-06-09 20:03] MED LIST changes: -DOXY100C2 PO; +DOXY100C5 PO
--- NOTE | 2021-06-09 20:10 | NUR ---
LEENA FFROM HOME. PT C/O OF SOB AND TONGUE SWELLING. PT REPORTS TONGUE SWELLING CAN BE CAUSED FROM HER TRILOGY COPD MED PT CONCERNS THAT SOMETHING FELL IN BACK OF HER NOSE WELL DENIES CP, FEVER/CHILLS, N/V/D, BLOOD THINNERS ATTACHED TO MONITORS, VSS, NADN. BED IN LOW, RAILS ENGAGED, IN GIWN, CALL LIGHT ON LAP
--- NOTE | 2021-06-09 20:16 | NUR ---
PT REPORTS SWOLLEN TONGUE FOR PAST 3 DAYS. PT GIVEN ORAL SWABS AND HEATED BLANKETS
--- NOTE | 2021-06-09 20:16 | NUR ---
PT RECEIEVED 50 BENADRYL NURSE COMPANION
--- NOTE | 2021-06-09 20:50 | NUR ---
PT GIVEN PILLOW AND HEATED BLANKETS
[2021-06-09] MEDS ORDERED: methylPREDNISolone SOD SUCC 125 MG/2 ML ONE (21:21)
[2021-06-09] MEDS ORDERED: FAMOTIDINE 20 MG/2 ML ONE (21:21)
[2021-06-09] MEDS ORDERED: LIDOCAINE-MPF 1%, 5ML ONE (21:21)
[2021-06-09] MEDS ORDERED: ALBUTEROL/IPRATROPIUM 2.5MG/0.5MG, 3 ML ONE (21:29)
[2021-06-09] MEDS ORDERED: ALBUTEROL/IPRATROPIUM 2.5MG/0.5MG, 3 ML NPPB ONE (21:30)
[2021-06-09] MEDS ORDERED: methylPREDNISolone SOD SUCC 125 MG/2 ML IVPush ONE (22:00)
[2021-06-09] MEDS ORDERED: FAMOTIDINE 20 MG/2 ML IVPush ONE (22:00)
[2021-06-09] MEDS ORDERED: LIDOCAINE 1%, 2ML INFIL ONE (22:00)
[2021-06-09] MEDS ORDERED: SODIUM CHLORIDE FLUSH 10ML SYR IVF ONE (22:00)
--- NOTE | 2021-06-09 22:24 | NUR ---
Patient is resting comfortably in bed. Bed in lowest, rails engaged, call light on lap. Vital Signs within normal limits. WCLÁZARO. NADN. HADLEY PULLED OUT BLUE CANNULA FROM A PEN OUT OF PT NOSE EARLIER. PT TOLERATED PROEDURE WELL.
--- NOTE | 2021-06-09 23:04 | NUR ---
SPOKE TO RAD ABOUT XRAY AND WHY IT WAS TAKING LONG. LIVESTOCK YARD ATTENDANT STATED THAT TECH WHO TOOK PICTURE DID NOT SEND THE PICTURE OFF PICTURE HAS NOW BEEN SENT OFF AND READY TO READ. AWAITING RESULTS. PT WATCHING TV. PT CHARGING O2 CONCENTRATOR IN ROOM. NADN. [place]. NERY
[2021-06-10 00:51] VITALS: BP 180/82
--- NOTE | 2021-06-10 01:35 | NUR ---
Patient/Caregiver given discharge instructions and they have confirmed that they understand the instructions. Patient ambulatory with steady gait. NAD, all questions answered appropriately, denies additional needs at this time. No personal belongings left in room after discharge. PT LEFT WITH CONCENTRATOR AT 2L NC. GIVEN TAXI VOUCHER.
== END 2021-06-10 01:37 | disposition home or self-care (01) ==
LOC: ED 23:13
DX: T17.1XXA Foreign body in nostril, initial encounter (principal); T78.40XA Allergy, unspecified, initial encounter; J44.1 Chronic obstructive pulmonary disease with (acute) exacerbation; I10 Essential (primary) hypertension; Z87.891 Personal history of nicotine dependence; X58.XXXA Exposure to other specified factors, initial encounter; Y93.89 Activity, other specified; Y92.89 Other specified places as the place of occurrence of the external cause; Y99.8 Other external cause status
CPT/HCPCS: 30300; 71045; 93005; 94640; 96374; 96375; 99284; J2930